=== PATIENT | female | born 1960 | race Caucasian/White ===

== ENCOUNTER 2018-04-15 09:27 | Emergency (ER) | payer OTHER ==
[2018-04-15 10:48] VITALS: BP 159/98
[2018-04-15] MEDS ORDERED: Tetan/Diph/Pertus SYR(Tdap)* 0.5 ML SYR(BOOSTRIX) use SYR IM ONE (10:59)
--- NOTE | 2018-04-15 11:06 | UC ---
Skin Complaint HPI - HPI Summary HPI Summary: 58 yo female presents with scratch to right forearm. She tells me that last night she was gardening and scratched her arm on her fence. She washed the area. Here today because she is unsure when her last tetanus shot was. - History of Current Complaint Chief Complaint: [facility] Time Seen by Provider: 04/15/18 10:51 Stated Complaint: SCRATCH ARM ON FENCE MIGHT NEED TETANUS SHOT Hx Obtained From: Patient Onset/Duration: Sudden Onset Skin Exposure Onset/Duration: Hours Ago Timing: Constant Onset Severity: Mild Current Severity: Mild Pain Intensity: 1 Pain Scale Used: 0-10 Numeric - Allergy/Home Medications Allergies/Adverse Reactions: Allergies Allergy/AdvReac Type Severity Reaction Status Date / Time latex Allergy Rash Verified 04/15/18 10:49 Home Medications: Home Medications NK [No Home Medications Reported] 04/15/18 [History Confirmed 04/15/18] Review of Systems Constitutional: Negative Skin: Other - Abrasion to right arm Respiratory: Negative Cardiovascular: Negative Neurovascular: Negative Musculoskeletal: Negative Neurological: Negative Psychological: Negative All Other Systems Reviewed And Are Negative: Yes PMH/Surg Hx/FS Hx/Imm Hx - Additional Past Medical History Additional PMH: None Previously Healthy: Yes - Surgical History Surgical History: Yes Surgery Procedure, Year, and Place: C SECTION - Family History Known Family History: Positive: None - Social History Occupation: Employed Full-time Lives: With Family Alcohol Use: Weekly Substance Use Type: None Smoking Status (MU): Former Smoker Physical Exam - Summary Physical Exam Summary: GENERAL: NAD. WDWN. No pain distress. SKIN: Superficial linear abrasion to right forearm 4.0cm in length. Scabbed over. No streaking, bleeding, or drainage. NECK: Supple. Nontender. No lymphadenopathy. CHEST: No accessory muscle use. Breathing comfortably and in no distress. CV: RRR. Without m/r/g. NEURO: Alert. CN II-XII grossly intact. PSYCH: Age appropriate behavior. Triage Information Reviewed: Yes Vital Signs: Initial Vital Signs Temp 96 F 04/15/18 10:44 Pulse 83 04/15/18 10:44 Resp 16 04/15/18 10:44 BP 159/98 04/15/18 10:44 Pulse Ox 100 04/15/18 10:44 Course/Dx - Course Course Of Treatment: tdap updated. No further treatment needed. Advised to keep area clean. - Diagnoses Provider Diagnoses: Abrasion to right forearm Discharge - Sign-Out/Discharge Documenting (check all that apply): Discharge/Admit/Transfer - Discharge Plan Condition: Stable Disposition: HOME Patient Education Materials: Tdap and Td Vaccines in Adults (ED) Referrals: Alejandra Lam MD [Primary Care Provider] - Additional Instructions: If you develop a fever, shortness of breath, chest pain, new or worsening symptoms - please call your PCP or go to the ED. Your blood pressure was high at todays visit. Please see your primary provider within 4 weeks for recheck and re-evaluation. - Billing Disposition and Condition Condition: STABLE Disposition: Home
== END 2018-04-15 11:26 | disposition home or self-care (01) ==
LOC: UCEAST 09:27
DX: S50.811A Abrasion of right forearm, initial encounter (principal); X58.XXXA Exposure to other specified factors, initial encounter; Y93.H2 Activity, gardening and landscaping; Y92.9 Unspecified place or not applicable; Z23 Encounter for immunization; Z91.040 Latex allergy status; Z87.891 Personal history of nicotine dependence
CPT/HCPCS: 90471; 90715; 99201; G0463